=== PATIENT | male | born 2000 | race Two or more races ===

== ENCOUNTER 2020-12-16 18:37 | Emergency (ER) | payer OTHER ==
[~2020-12-16] VITALS: Ht 172.7 cm; Wt 111.1 kg
[2020-12-16 22:30] VITALS: BP 144/73
[2020-12-16] MEDS ORDERED: BACITRACIN TOP OINT 1 UD PKG TOP ONE (22:45)
[2020-12-16] MEDS ORDERED: TETANUS-DIPTH-ACEL PERTUSSIS 0.5ML SYR Tdap IM ONE (22:45)
== END 2020-12-16 23:07 | disposition home or self-care (01) ==
LOC: ER 18:38
DX: S61.212A Laceration without foreign body of right middle finger without damage to nail, initial encounter (principal); E66.9 Obesity, unspecified; Z68.37 Body mass index [BMI] 37.0-37.9, adult; W26.8XXA Contact with other sharp object(s), not elsewhere classified, initial encounter; Y93.89 Activity, other specified; Y92.89 Other specified places as the place of occurrence of the external cause; Y99.8 Other external cause status
CPT/HCPCS: 90471; 90715